=== PATIENT | female | born 1995 | race Caucasian/White ===

== ENCOUNTER → 2017-12-01 | Outpatient (REF) ==
--- NOTE | 2017-12-01 15:58 | Diagnostic Imaging Report ---
INDICATION: Fall with back pain. TECHNIQUE: AP and lateral views of the thoracic spine were obtained. FINDINGS: The thoracic vertebrae are normal in height and alignment. There is no fracture, subluxation, or compression deformity. There is no significant disc space narrowing. IMPRESSION: Negative plain radiographs of the thoracic spine. Dictated by: Dictated on workstation # [id number]
--- NOTE | 2017-12-01 15:59 | Diagnostic Imaging Report ---
INDICATION: Fall with neck pain. TECHNIQUE: AP, odontoid, and lateral views of the cervical spine were obtained. FINDINGS: The cervical vertebrae appear normal in height and alignment. There is no fracture or subluxation. There is no significant disc space narrowing. IMPRESSION: Negative cervical spine series. Dictated by: Dictated on workstation # [id number]
== END | disposition home or self-care (01) ==
LOC: OCC 15:10
PROVIDERS: ATTEND Nurse Practitioner Family
CPT/HCPCS: 72040; 72072

== ENCOUNTER → 2018-03-19 | Outpatient (CLI) | payer OTHER ==
[~2018-03-19] MED LIST: AZTH250C PO; BUTA1CAP45 PO; CEPH-38 PO; CYCL10TA9 PO; IBUPROFEN; LANS15CA27; MEDR150V IM; MTF500T
[2018-03-19 09:44] LABS: BASOPHILS % (AUTO) 1 % (0-10); EOSINOPHILS # (AUTO) 0.2 10^3/uL (0.0-0.3); EOSINOPHILS % (AUTO) 3 % (0-10); HEMATOCRIT 40 % (35-52); HEMOGLOBIN 12.8 G/DL (11.5-16.0); LYMPHOCYTES # (AUTO) 2.4 X 10^3 (1.0-4.0); LYMPHOCYTES % (AUTO) 31 % (12-44); MEAN CORPUSCULAR HEMOGLOBIN 24 PG (25-34); MEAN CORPUSCULAR HGB CONC 32 G/DL (32-36); MEAN CORPUSCULAR VOLUME 73 FL (80-99); MEAN PLATELET VOLUME 9.5 FL (7.4-10.4); MONOCYTES # (AUTO) 0.8 X 10^3 (0.0-1.0); MONOCYTES % (AUTO) 10 % (0-12); NEUTROPHILS # (AUTO) 4.3 X 10^3 (1.8-7.8); NEUTROPHILS % (AUTO) 55 % (42-75); PLATELET COUNT 430 10^3/uL (130-400); RED BLOOD COUNT 5.43 10^6/uL (4.35-5.85); RED CELL DISTRIBUTION WIDTH 17.9 % (10.0-14.5); WHITE BLOOD COUNT 7.7 10^3/uL (4.3-11.0)
--- NOTE | 2018-03-19 10:06 | Diagnostic Imaging Report ---
INDICATION: Constipation for the past year. Denies abdominal pain. TECHNIQUE: Single view chest with supine and upright radiographs of the abdomen. 10:12 AM CORRELATION STUDY: None FINDINGS: Frontal radiograph of the chest demonstrates no acute abnormality. Asymmetrically mildly elevated right diaphragm. Supine and upright radiographs of the abdomen demonstrates the bowel gas pattern to be unremarkable and without evidence for obstruction. No free air is seen under the diaphragms. Probable multiple splenic and hepatic calcified granulomas. IMPRESSION: 1. Negative for acute cardiopulmonary abnormality. 2. Unremarkable appearing bowel gas pattern. Dictated by: Dictated on workstation # [id number]
[2018-03-19 10:11] LABS: BUN/CREATININE RATIO 15; CARBON DIOXIDE 24 MMOL/L (21-32); CHLORIDE 108 MMOL/L (98-107); CREATININE SERUM 0.67 MG/DL (0.60-1.30); POTASSIUM 3.8 MMOL/L (3.6-5.0); SODIUM 141 MMOL/L (135-145)
[2018-03-19 10:12] LABS: ALANINE AMINOTRANSFERASE 26 U/L (0-55); ALBUMIN 3.8 GM/DL (3.2-4.5); ALKALINE PHOSPHATASE 122 U/L (40-136); AMYLASE 53 U/L (25-125); BILIRUBIN,TOTAL 0.2 MG/DL (0.1-1.0); CALCIUM 9.5 MG/DL (8.5-10.1); CHOLESTEROL 209 MG/DL (< 200); GFR ESTIMATED > 60; GLUCOSE 106 MG/DL (70-105); HDL CHOLESTEROL 44 MG/DL (40-60); LIPASE 19 U/L (8-78); TOTAL PROTEIN 7.3 GM/DL (6.4-8.2); TRIGLYCERIDES 82 MG/DL (<150); VLDL CHOLESTEROL 16 MG/DL (5-40)
== END ==
LOC: RAD 09:21
PROVIDERS: ATTEND Nurse Practitioner Family
DX: K59.00 Constipation, unspecified (principal)
CPT/HCPCS: 36415; 74022; 80053; 80061; 82150; 83036; 83690; 84443; 85025

== ENCOUNTER → 2018-04-06 | Outpatient (CLI) | payer OTHER ==
[~2018-04-06] MED LIST changes: +GADOBUTROL 15 MMOL/15 ML (GADAVIST) VIAL IV ONE
--- NOTE | 2018-05-13 11:17 | RADIOLOGY REPORT ---
NAME: JAM BLAND [facility] REC#: [id number] PT STATUS: REG CLI : 1995 PHYSICIAN: ELIZABETH ALCANTAR APRN ADMIT DATE: 04/06/18/RAD CORRECTED Signed Date of Exam:04/06/18 MRI ABDOMEN W/WO CONTRAST PROCEDURE: MR imaging abdomen with and without contrast. TECHNIQUE: Multiplanar, multisequence MR imaging of the abdomen was performed with and without contrast. INDICATION: Left-sided pain. COMPARISON: I have no previous for comparison. FINDINGS: There are a few tiny subcentimeter T2 hypointense filling defects in the dependent gallbladder as well as gallbladder fluid-fluid level likely owing to a trace amount of sludge and a few tiny gallstones. The gallbladder is non-thickened. The gallbladder is nondilated. There is no pericholecystic fluid. There is no bile duct dilatation. The intra- and extra-hepatic biliary ducts appear normal. The adrenals, spleen, and pancreas as well as pancreatic duct appear normal. Kidneys are unobstructed and normal. The aorta and IVC are normal in caliber and show normal luminal signal. There is no mesenteric or retroperitoneal lymphadenopathy. The spleen is nonfocal and normal in size. There is no ascites. The pancreas is normal. No mesenteric or retroperitoneal adenopathy. IMPRESSION: Findings suspicious for small amount of sludge and tiny intraluminal stones in the gallbladder; however, no features of acute cholecystitis or biliary dilatation. Unobstructed urinary tracts. Negative adrenals and pancreas. Normal-sized spleen with no ascites, adenopathy, aneurysm, or fluid collection. Dictated by: Dictated on workstation # [id number] Dict: 04/06/18 1128 Trans: 04/06/18 1702 [id number] Interpreted by: PANCHITO KAUR Electronically signed by: PANCHITO KAUR 04/06/18 1702 [facility]
== END ==
LOC: RAD 08:32
PROVIDERS: ATTEND Nurse Practitioner Family
DX: R10.32 Left lower quadrant pain (principal)
CPT/HCPCS: 74183

== ENCOUNTER → 2020-02-03 | Outpatient (CLI) | payer OTHER, MEDICAID ==
[~2020-02-03] MED LIST changes: -GADOBUTROL 15 MMOL/15 ML (GADAVIST) VIAL IV ONE
--- NOTE | 2020-02-03 11:39 | Diagnostic Imaging Report ---
PROCEDURE: US OB SINGLE FETUS <14 WKS. TECHNIQUE: Multiple real-time grayscale images were obtained over the gravid uterus in various projections. INDICATION: dating. The uterus measures 9.0 x 4.4 x 4.8 cm. There is an intrauterine gestational sac containing a pole consistent with 7 weeks 3 days gestation. heart rate was recorded at 147 bpm. No ayan-gestational sac hemorrhage is detected. Adnexa are unremarkable. No mass or free fluid is seen. IMPRESSION: Single live IUP 7 weeks 3 days gestational age. Estimated date of confinement sonographically is 09/18/2020. Dictated by: Dictated on workstation # [id number]
== END ==
LOC: RAD 10:18
PROVIDERS: ATTEND Family Medicine
DX: Z36.89 Encounter for other specified antenatal screening (principal); Z3A.01 Less than 8 weeks gestation of pregnancy
CPT/HCPCS: 76801

== ENCOUNTER → 2020-04-24 | Outpatient (CLI) | payer OTHER, MEDICAID ==
--- NOTE | 2020-04-24 11:41 | Diagnostic Imaging Report ---
INDICATION: survey. TECHNIQUE: Multiple real-time grayscale images were obtained over the gravid uterus. COMPARISON: 02/03/2020. FINDINGS: There is a single live fetus in a cephalic presentation. heart rate was recorded at 132 bpm. Placenta is anterior. Amniotic fluid volume appears normal. survey shows kidneys, bladder and stomach to be unremarkable. brain is unremarkable. There is a three-vessel cord with normal insertion. spine is unremarkable. The four-chamber heart view could not be adequately obtained today. Study is somewhat compromised due to patient's body habitus. Maternal adnexa were not evaluated. Biometrical measurements are as follows: Biparietal 4.23 cm, age 18 weeks 6 days. Head circumference 15.74 cm, age 18 weeks 5 days. Abdominal circumference 13.27 cm, age 18 weeks 6 days. Femur length 3.28 cm, age 20 weeks 2 days. Sonographic estimate age: 19 weeks 2 days. Sonographic estimated date of delivery: 09/16/2020. Estimated Weight: 288 gm (+/- 42 gm). LMP percentile: 68%. heart rate: 132 beats per minute. number: 1 of 1. IMPRESSION: Single live IUP 19 weeks 2 days gestational age showing normal interval growth when compared with prior exam. No complicating features are seen. Note is made that the four-chamber heart view could not be obtained and a follow-up could be performed. Dictated by: Dictated on workstation # [id number]
== END ==
LOC: RAD 09:32
PROVIDERS: ATTEND Family Medicine
DX: Z34.92 Encounter for supervision of normal pregnancy, unspecified, second trimester (principal); Z3A.19 19 weeks gestation of pregnancy
CPT/HCPCS: 76805

== ENCOUNTER → 2020-05-26 | Outpatient (CLI) | payer OTHER, MEDICAID ==
--- NOTE | 2020-05-26 16:34 | Diagnostic Imaging Report ---
INDICATION: Follow-up anatomy. TECHNIQUE: Multiple real-time grayscale images were obtained over the gravid uterus. COMPARISON: 04/24/2020. FINDINGS: There is a single live fetus in a cephalic presentation. heart rate was recorded at 127 bpm. Placenta is anterior. Amniotic fluid volume appears normal. Four-chamber heart view was visualized with clarity on today's study. IMPRESSION: Unremarkable limited obstetrical ultrasound. Dictated by: Dictated on workstation # [id number]
== END ==
LOC: RAD 09:53
PROVIDERS: ATTEND Family Medicine
DX: Z34.90 Encounter for supervision of normal pregnancy, unspecified, unspecified trimester (principal)
CPT/HCPCS: 76816

== ENCOUNTER 2020-08-23 15:43 | Outpatient (CLI) | payer OTHER, MEDICAID ==
[~2020-08-23] VITALS: Ht 157 cm; Wt 143.6 kg
--- NOTE | 2020-08-23 15:50 | NUR ---
Arrived to unit via wheelchair from ED with c/o "high blood pressure, back pain, lower abd pain and chest pain." wt obtained and to room 317. Gowned and urine sample obtained. Plan of care reviewed with pt.
[2020-08-23 16:30] VITALS: BP 132/73
[2020-08-23 16:31] VITALS: BP 132/73
[2020-08-23 16:45] VITALS: BP 134/79
[2020-08-23] MEDS ORDERED: FLU QUADRIvalent (3YOA+) 60 mcg/0.5 ml 2020-21 (AFLURIA) IM ONE (16:45)
[2020-08-23 16:46] LABS: BILIRUBIN,URINE NEGATIVE (NEGATIVE); CLARITY,URINE CLEAR; COLOR,URINE YELLOW; GLUCOSE, URINE (UA) NEGATIVE (NEGATIVE); KETONES,URINE NEGATIVE (NEGATIVE); LEUKOCYTE ESTERASE ,URINE NEGATIVE (NEGATIVE); NITRITE,URINE NEGATIVE (NEGATIVE); PROTEIN,URINE NEGATIVE (NEGATIVE)
[2020-08-23] MEDS ORDERED: FERR-84 PO (16:55)
[2020-08-23] MEDS ORDERED: DOCU-143 PO (16:55)
[2020-08-23] MEDS ORDERED: LORA10TA7 PO (16:55)
[2020-08-23] MEDS ORDERED: ONDN4T PO (16:55)
[2020-08-23] MEDS ORDERED: MECO10005 PO (16:55)
[2020-08-23] MEDS ORDERED: PREN-37 PO (16:55)
[2020-08-23 16:56] LABS: BACTERIA,URINE TRACE /HPF
[2020-08-23 17:00] VITALS: BP 133/79
[2020-08-23 17:25] VITALS: BP 134/79
--- NOTE | 2020-08-23 18:10 | NUR ---
Discharge instructions explained, signed and copy to patient. pt verbalized understanding of instructions and denied questions. Dicharged to home. Ambulates self off unit accompanied by s.o. with belongings in hand.
--- NOTE | 2020-08-24 08:11 | Physician Query-Final Dx ---
LUCY GRACE 08/24/20 0811: Clinic Account Progress/Dx Physician Query: Please give diagnosis Please include # weeks gestation Date of Service Aug 23, 2020 at 15:43 WILLY BRYANT MD 08/25/20 0707: Clinic Account Progress/Dx DIAGNOSIS: Diagnosis 1. IUP at 36 weeks, non-labor 2. Membranes intact LUCY GRACE Aug 24, 2020 08:11 WILLY BRYANT MD Aug 25, 2020 07:07
== END 2020-08-23 18:10 | disposition home or self-care (01) ==
LOC: WSo 15:43 → LDRP 15:49 → WSo 18:10
PROVIDERS: ATTEND Family Medicine
DX: O99.413 Diseases of the circulatory system complicating pregnancy, third trimester (principal); R03.0 Elevated blood-pressure reading, without diagnosis of hypertension; Z3A.38 38 weeks gestation of pregnancy
CPT/HCPCS: 81000; G0008; G0463; 90471; 90686; 99213

== ENCOUNTER 2020-09-13 19:07 | Inpatient (IN) | payer OTHER, MEDICAID ==
[~2020-09-13] VITALS: Ht 162.6 cm; Wt 146.2 kg
[~2020-09-13 19:07] MED LIST changes: +DOCU-143 PO; +FERR-84 PO; +LORA10TA7 PO; +MECO10005 PO; +ONDN4T PO; +PREN-37 PO
--- NOTE | 2020-09-13 19:20 | NUR ---
JAM BLAND , 39/2 presented to unit via from ED, accompanied by , for INDUCTION. JAM BLAND weighed, gowned, voided, and to bed. EFHM and TOCO applied, VS taken. JAM BLAND oriented to bed controls, call light, TV, heat, and A/C controls.
--- NOTE | 2020-09-13 19:34 | NUR ---
Dr. Mandujano called for orders on induction. orders cytotec to be given thoughout the night, starting with a loading dose of 100mcg PO then 50mcg PO q4 hours. states that he will be in at 0630 to break water.
[2020-09-13] MEDS ORDERED: AMPICILLIN FOR IV USE 2,000 MG in WATER (STERILE) FOR INJECTION 14.8 ML IV SCH (19:36)
[2020-09-13] MEDS ORDERED: MINERAL OIL CONCENTRATE 99.9% 15 ML UDC TOP PRN (19:45)
[2020-09-13] MEDS ORDERED: MISOPROSTOL 100 MCG (CYTOTEC) TAB PO ONE (19:45)
[2020-09-13] MEDS ORDERED: LACTATED RINGERS 1,000 ML IV SCH (19:45)
[2020-09-13] MEDS ORDERED: LACTATED RINGERS 1,000 ML IV ONE (19:52)
[2020-09-13 20:36] LABS: BASOPHILS % (AUTO) 0 % (0-10); EOSINOPHILS # (AUTO) 0.1 10^3/uL (0.0-0.3); EOSINOPHILS % (AUTO) 1 % (0-10); HEMATOCRIT 41 % (35-52); LYMPHOCYTES # (AUTO) 2.8 10^3/uL (1.0-4.0); LYMPHOCYTES % (AUTO) 19 % (12-44); MEAN CORPUSCULAR HEMOGLOBIN 24 pg (25-34); MEAN CORPUSCULAR HGB CONC 32 g/dL (32-36); MEAN CORPUSCULAR VOLUME 76 fL (80-99); MEAN PLATELET VOLUME 10.1 fL (9.0-12.2); MONOCYTES # (AUTO) 1.3 10^3/uL (0.0-1.0); MONOCYTES % (AUTO) 9 % (0-12); NEUTROPHILS # (AUTO) 10.5 10^3/uL (1.8-7.8); NEUTROPHILS % (AUTO) 71 % (42-75); PLATELET COUNT 405 10^3/uL (130-400); WHITE BLOOD COUNT 14.7 10^3/uL (4.3-11.0)
[2020-09-13 20:45] VITALS: BP 140/94
[2020-09-13 20:55] LABS: NEUTROPHILS % (MANUAL) 69 %
[2020-09-13 20:56] LABS: EOSINOPHILS % (MANUAL) 1 %; LYMPHOCYTES % (MANUAL) 22 %; MONOCYTES % (MANUAL) 8 %; RBC MORPH NORMAL
[2020-09-13] MEDS: D5 LR IV SOLUTION 1,000 ML IV SCH (21:20)
[2020-09-13 21:58] VITALS: BP 140/94
[2020-09-13] MEDS ORDERED: CATHETER FLUSH 10 ML SYR IV SCH (22:00)
[2020-09-13 22:45] VITALS: BP 122/65
[2020-09-13] MEDS ORDERED: ZOLPIDEM 5 MG (AMBIEN) TAB ONE (23:44)
[2020-09-13] MEDS ORDERED: MISOPROSTOL 100 MCG (CYTOTEC) TAB PO SCH (23:45)
[2020-09-13] MEDS ORDERED: ZOLPIDEM 5 MG (AMBIEN) TAB PO ONE (23:45)
[2020-09-13 23:55] VITALS: BP 111/57
[2020-09-14] VITALS (54 sets, daily range): BP systolic 115–174; BP diastolic 57–109
[2020-09-14] MEDS: AMPICILLIN FOR IV USE 1,000 MG in WATER (STERILE) FOR INJECTION 7.4 ML IV SCH ×5 (01:12→18:13)
--- NOTE | 2020-09-14 03:18 | NUR ---
Dr. Mandujano called with update on pt. Informed of decelerations starting at 0140. Informed that baby recovered after interventions, but started to decel again after pt. got up to the bathroom. informed that pt. has O2 on going at 10 L, and a IV fluid bolus running. Pt. is not back on right side where heart tones have recovered, but variability is minimal. informed that when pt was in semi-fowlers, nurse was able to assess that pt was in tachysystole. orders fluid bolus to be finished and not to give another dose of Cytotec until he can come in the morning to evaluate pt.
[2020-09-14] MEDS ORDERED: TERBUTALINE INJ 1 MG/ML (BRETHINE) AMP ONE (03:23)
[2020-09-14] MEDS ORDERED: TERBUTALINE INJ 1 MG/ML (BRETHINE) AMP SC ONE (03:30)
[2020-09-14] MEDS: D5 LR IV SOLUTION 1,000 ML IV SCH ×2 (05:03→13:53)
--- NOTE | 2020-09-14 06:39 | History & Physical-OB ---
OB - Chief Complaint & HPI Date/Time Date of Admission: Date of Admission: Sep 13, 2020 at 19:07 Date seen by a Provider: Sep 14, 2020 Time Seen by a Provider: 06:25 Chief Complaint/History OB-Reason for Admission/Chief: Induction of Labor Hx : 1 Hx Para: 0 Expected Date of Delivery: Sep 18, 2020 Gestational Age in Weeks: 39 Gestational Age in Days: 2 Admission Nurse Assessment Rev: Yes History of Labs GBS positive Allergies and Home Medications Allergies Coded Allergies: No Known Drug Allergies (Unverified , 03/05/18) Home Medications Docusate Sodium 100 Mg Capsule, 100 MG PO DAILY, (Reported) Ferrous Sulfate 325 Mg Tablet, 325 MG PO DAILY, (Reported) Loratadine 10 Mg Tablet, 10 MG PO DAILY, (Reported) Mecobalamin 1,000 Mcg Tab.chew, 1,000 MCG PO DAILY, (Reported) Ondansetron HCl 4 Mg Tab, 4 MG PO DAILY, (Reported) Vit/Iron Fumarate/FA 1 Each Tablet, 1 EACH PO DAILY, (Reported) Patient Home Medication List Home Medication List Reviewed: Yes OB - History Hx of Present Care: Yes Ultrasounds: Normal mid trimester US Obstetrical Complications: None Medical Complications: None Delivery History Hx Blood Disorders: No Adverse Rxn to Tranfusion: No Patient Past Medical History no chronic medical problems Social History/Family History Recent Infectious Disease Expo: No Sexually Transmitted Disease: No Alcohol Use: Denies Use Recreational Drug Use: No 2nd Hand Smoke Exposure: Yes Immunizations Hepatitis A: Yes Hepatitis B: Yes Date of Influenza Vaccine: Sep 01, 2020 OB - Admission Exam Physical Exam Vitals: Vital Signs 09/14/20 09/14/20 09/14/20 01:00 03:00 04:00 Temp 36.7 Pulse 97 Resp 18 B/P (MAP) 130/72 (91) Pulse Ox 99 O2 Delivery Room Air HEENT: Moist Membranes Heart: Rhythm Normal Lungs: Clear Abdomen: Gravid Extremities: Normal Cervical Dilatation: 2cm Effacement: 50% Membranes: Intact Heart Rate: 140's Accelerations: Accelerations Present Intensity: Moderate Labs Laboratory Tests Test 09/13/20 20:10 09/13/20 23:20 Range/Units White Blood Count 14.7 H 4.3-11.0 10^3/uL Red Blood Count 5.40 H 3.80-5.11 10^6/uL Hemoglobin 13.0 11.5-16.0 g/dL Hematocrit 41 35-52 % Mean Corpuscular Volume 76 L 80-99 fL Mean Corpuscular Hemoglobin 24 L 25-34 pg Mean Corpuscular Hemoglobin Concent 32 32-36 g/dL Red Cell Distribution Width 18.4 H 10.0-14.5 % Platelet Count 405 H 130-400 10^3/uL Mean Platelet Volume 10.1 9.0-12.2 fL Immature Granulocyte % (Auto) 0 % Neutrophils (%) (Auto) 71 42-75 % Lymphocytes (%) (Auto) 19 12-44 % Monocytes (%) (Auto) 9 0-12 % Eosinophils (%) (Auto) 1 0-10 % Basophils (%) (Auto) 0 0-10 % Neutrophils # (Auto) 10.5 H 1.8-7.8 10^3/uL Lymphocytes # (Auto) 2.8 1.0-4.0 10^3/uL Monocytes # (Auto) 1.3 H 0.0-1.0 10^3/uL Eosinophils # (Auto) 0.1 0.0-0.3 10^3/uL Basophils # (Auto) 0.0 0.0-0.1 10^3/uL Immature Granulocyte # (Auto) 0.1 0.0-0.1 10^3/uL Neutrophils % (Manual) 69 % Lymphocytes % (Manual) 22 % Monocytes % (Manual) 8 % Eosinophils % (Manual) 1 % Blood Morphology Comment NORMAL OB - Assessment/Plan/Diagnosis Assessment Assessment: induction of labor Admission Dx 1. IUP at term 39 weeks Admission Status: Inpatient Order (span 2 midnights) Reason for Inpatient Admission: L&D Plan Induction Method: per Misoprostol Protocol Other Plan -epidural desired -pitocin as necessary -GBS positive. Ampicillin protochol WILLY BRYANT MD Sep 14, 2020 06:39
[2020-09-14] MEDS ORDERED: OXYTOCIN PRE-MIX DRIP 500 ML IV SCH (06:45)
--- NOTE | 2020-09-14 07:05 | NUR ---
Report given to Clarissa Rojas RN
[2020-09-14] MEDS ORDERED: fentaNYL 2 mcg/ml BUPIVA 0.125 100 ML ONE ×2 (08:26→13:39)
[2020-09-14] MEDS ORDERED: fentaNYL INJECTION 100 MCG/2 ML AMP ONE ×2 (08:56→17:23)
[2020-09-14] MEDS ORDERED: BUPIVACAINE 0.25% 30 ML (SENSORCAINE) VIAL ONE ×2 (08:56→16:40)
--- NOTE | 2020-09-14 16:34 | Labor Progress Note ---
Labor Progress Note Labor Progress Note Date Seen by Provider: Sep 14, 2020 Time Seen by Provider: 16:25 Subjective: Having some nausea. Feels cramps low. Objective: Cervical exam: 5 cm Consistency: soft Position: -3 Presentation: vertex heart tones:130 beats per minute, good variability, reactive Tocometer: 5 ctx/10 minutes Assessment/Plan: Dann Joel is a (23 /Para 1 / 0,Gestational Age (wks)39 here for labor CEFM/TOCO Continue pitocin/6 uU/min Anesthesia: epidural in place Anticipate vaginal delivery but patient aware that if dilation stops she may ne ed CS Vitals - Labs Vital Signs - I&O Vital Signs Date Time Temp Pulse Resp B/P (MAP) Pulse Ox O2 Delivery O2 Flow Rate FiO2 09/14/20 14:55 92 18 143/80 (101) 100 Room Air 09/14/20 14:40 77 18 159/92 (114) 100 Room Air 09/14/20 14:25 81 18 157/94 (115) 100 Room Air 09/14/20 14:10 100 18 138/91 (107) 100 Room Air 09/14/20 13:55 70 18 148/91 (110) 100 Room Air 09/14/20 13:40 91 18 157/96 (116) 100 Room Air 09/14/20 13:25 68 18 147/88 (107) 100 Room Air 09/14/20 13:10 78 18 141/93 (109) 100 Room Air 09/14/20 12:55 71 18 127/72 (90) 100 Room Air 09/14/20 12:40 75 18 133/71 (91) 100 Room Air 09/14/20 12:25 76 18 155/90 (111) 100 Room Air 09/14/20 12:10 36.6 85 18 155/92 (113) 100 Room Air 09/14/20 11:55 71 18 147/90 (109) 100 Room Air 09/14/20 11:40 75 18 145/89 (107) 100 Room Air 09/14/20 11:25 86 18 143/71 (95) 97 Room Air 09/14/20 11:10 74 18 138/81 (100) 99 Room Air 09/14/20 10:55 76 18 137/70 (92) 100 Room Air 12/10/20 10:40 82 18 136/86 (103) 100 Room Air 09/14/20 10:25 83 18 138/79 (98) 100 Room Air 09/14/20 10:10 81 20 155/87 (109) 100 Room Air 09/14/20 09:55 83 20 147/73 (97) 100 Room Air 09/14/20 09:50 92 20 156/86 (109) 98 Room Air 09/14/20 09:45 96 20 171/89 (116) 98 Room Air 09/14/20 09:40 81 20 155/71 (99) 98 Room Air 09/14/20 09:35 106 20 164/79 (107) 97 Room Air 09/14/20 09:30 105 20 172/70 (104) 97 Room Air 09/14/20 09:25 105 20 156/98 (117) 97 Room Air 09/14/20 09:20 115 20 154/91 (112) 97 Room Air 09/14/20 09:15 100 20 148/92 (110) 97 Room Air 09/14/20 09:10 92 20 153/88 (109) 98 Room Air 09/14/20 09:05 88 20 153/80 (104) 99 Room Air 09/14/20 09:00 36.0 103 20 144/78 (100) 100 Room Air 09/14/20 07:00 93 18 117/57 (77) Room Air 09/14/20 06:00 36.1 92 18 119/61 (80) Room Air 09/14/20 05:00 104 18 124/67 (86) Room Air 09/14/20 04:00 97 18 130/72 (91) Room Air 09/14/20 03:00 36.7 101 18 126/73 (90) Room Air 09/14/20 02:00 94 18 133/82 (99) Room Air 09/14/20 01:00 92 18 137/77 (97) 99 Room Air 09/13/20 23:55 36.5 79 18 111/57 (75) Room Air 09/13/20 22:45 36.2 85 20 122/65 (84) 99 Room Air 09/13/20 21:58 36.1 86 20 98 Room Air 09/13/20 20:45 85 20 140/94 (109) 99 Room Air I & O 09/14/20 07:00 Intake Total 2000 ml Balance 2000 ml Labs Laboratory Tests 09/13/20 20:10: White Blood Count 14.7H, Red Blood Count 5.40H, Hemoglobin 13.0, Hematocrit 41, Mean Corpuscular Volume 76L, Mean Corpuscular Hemoglobin 24L, Mean Corpuscular Hemoglobin Concent 32, Red Cell Distribution Width 18.4H, Platelet Count 405H, Mean Platelet Volume 10.1, Immature Granulocyte % (Auto) 0, Neutrophils (%) (Auto) 71, Lymphocytes (%) (Auto) 19, Monocytes (%) (Auto) 9, Eosinophils (%) (Auto) 1, Basophils (%) (Auto) 0, Neutrophils # (Auto) 10.5H, Lymphocytes # (Auto) 2.8, Monocytes # (Auto) 1.3H, Eosinophils # (Auto) 0.1, Basophils # (Auto) 0.0, Immature Granulocyte # (Auto) 0.1, Neutrophils % (Manual) 69, Lymp hocytes % (Manual) 22, Monocytes % (Manual) 8, Eosinophils % (Manual) 1, Blood Morphology Comment NORMAL 09/13/20 23:20: WILLY BRYANT MD Sep 14, 2020 16:34
[2020-09-14] MEDS ORDERED: CITRIC ACID/SOB CIT (BICITRA) 30 ML UDC ONE (17:15)
[2020-09-14] MEDS ORDERED: FAMOTIDINE 20MG/2ML IV (PEPCID) ONE (17:15)
[2020-09-14] MEDS ORDERED: METOCLOPRAMIDE INJ 10 MG/2 ML (REGLAN) ONE (17:15)
[2020-09-14] MEDS ORDERED: OXYTOCIN PRE-MIX DRIP 1,000 ML IV ONE (17:23)
[2020-09-14] MEDS ORDERED: LIDOCAINE PF 2% 5 ML (XYLOCAINE) VIAL ONE (17:23)
--- NOTE | 2020-09-14 17:23 | Labor Progress Note ---
Labor Progress Note Labor Progress Note Date Seen by Provider: Sep 14, 2020 Time Seen by Provider: 17:20 Subjective: Pt with epidural but has pressure. Objective: Cervical exam: 5 cm Consistency: soft Position: -3 Presentation: vtx heart tones:140 beats per minute, occasional runs of repetitive late decels Tocometer: 4 ctx/10 minutes Assessment/Plan: Dann Joel is a (23 /Para 1 / 0,Gestational Age (wks)39 [facility] Anest[facility] and surgery crew notified. Dr Harding notified and be here shortly Primary CS planned urgent Vitals - Labs Vital Signs - I&O Vital Signs Date Time Temp Pulse Resp B/P (MAP) Pulse Ox O2 Delivery O2 Flow Rate FiO2 09/14/20 14:55 92 18 143/80 (101) 100 Room Air 09/14/20 14:40 77 18 159/92 (114) 100 Room Air 09/14/20 14:25 81 18 157/94 (115) 100 Room Air 09/14/20 14:10 100 18 138/91 (107) 100 Room Air 09/14/20 13:55 70 18 148/91 (110) 100 Room Air 09/14/20 13:40 91 18 157/96 (116) 100 Room Air 09/14/20 13:25 68 18 147/88 (107) 100 Room Air 09/14/20 13:10 78 18 141/93 (109) 100 Room Air 09/14/20 12:55 71 18 127/72 (90) 100 Room Air 09/14/20 12:40 75 18 133/71 (91) 100 Room Air 09/14/20 12:25 76 18 155/90 (111) 100 Room Air 09/14/20 12:10 36.6 85 18 155/92 (113) 100 Room Air 09/14/20 11:55 71 18 147/90 (109) 100 Room Air 09/14/20 11:40 75 18 145/89 (107) 100 Room Air 09/14/20 11:25 86 18 143/71 (95) 97 Room Air 09/14/20 11:10 74 18 138/81 (100) 99 Room Air 09/14/20 10:55 76 18 137/70 (92) 100 Room Air 09/14/20 10:40 82 18 136/86 (103) 100 Room Air 09/14/20 10:25 83 18 138/79 (98) 100 Room Air 09/14/20 10:10 81 20 155/87 (109) 100 Room Air 09/14/20 09:55 83 20 147/73 (97) 100 Room Air 09/14/20 09:50 92 20 156/86 (109) 98 Room Air 09/14/20 09:45 96 20 171/89 (116) 98 Room Air 09/14/20 09:40 81 20 155/71 (99) 98 Room Air 09/14/20 09:35 106 20 164/79 (107) 97 Room Air 09/14/20 09:30 105 20 172/70 (104) 97 Room Air 09/14/20 09:25 105 20 156/98 (117) 97 Room Air 09/14/20 09:20 115 20 154/91 (112) 97 Room Air 09/14/20 09:15 100 20 148/92 (110) 97 Room Air 09/14/20 09:10 92 20 153/88 (109) 98 Room Air 09/14/20 09:05 88 20 153/80 (104) 99 Room Air 09/14/20 09:00 36.0 103 20 144/78 (100) 100 Room Air 09/14/20 07:00 93 18 117/57 (77) Room Air 09/14/20 06:00 36.1 92 18 119/61 (80) Room Air 09/14/20 05:00 104 18 124/67 (86) Room Air 09/14/20 04:00 97 18 130/72 (91) Room Air 09/14/20 03:00 36.7 101 18 126/73 (90) Room Air 09/14/20 02:00 94 18 133/82 (99) Room Air 09/14/20 01:00 92 18 137/77 (97) 99 Room Air 09/13/20 23:55 36.5 79 18 111/57 (75) Room Air 09/13/20 22:45 36.2 85 20 122/65 (84) 99 Room Air 09/13/20 21:58 36.1 86 20 98 Room Air 09/13/20 20:45 85 20 140/94 (109) 99 Room Air I & O 09/14/20 07:00 Intake Total 2000 ml Balance 2000 ml Labs Laboratory Tests 09/13/20 20:10: White Blood Count 14.7H, Red Blood Count 5.40H, Hemoglobin 13.0, Hematocrit 41, Mean Corpuscular Volume 76L, Mean Corpuscular Hemoglobin 24L, Mean Corpuscular Hemoglobin Concent 32, Red Cell Distribution Width 18.4H, Platelet Count 405H, Mean Platelet Volume 10.1, Immature Granulocyte % (Auto) 0, Neutrophils (%) (Auto) 71, Lymphocytes (%) (Auto) 19, Monocytes (%) (Auto) 9, Eosinophils (%) (Auto) 1, Basophils (%) (Auto) 0, Neutrophils # (Auto) 10.5H, Lymphocytes # (Auto) 2.8, Monocytes # (Auto) 1.3H, Eosinophils # (Auto) 0.1, Basophils # (Auto) 0.0, Immature Granulocyte # (Auto) 0.1, Neutrophils % (Manual) 69, Lymphocytes % (Manual) 22, Monocytes % (Manual) 8, Eosinophils % (Manual) 1, Blood Morphology Comment NORMAL 09/13/20 23:20: WILLY BRYANT MD Sep 14, 2020 17:23
[2020-09-14] MEDS ORDERED: KETAMINE/NaCl 50 MG/5 ML SYRINGE (ED ONLY) ONE (17:29)
[2020-09-14] MEDS ORDERED: CATHETER FLUSH 10 ML SYR IV PRN (17:30)
[2020-09-14] MEDS ORDERED: METOCLOPRAMIDE INJ 10 MG/2 ML (REGLAN) IV ONE (17:30)
[2020-09-14] MEDS ORDERED: FAMOTIDINE 20MG/2ML IV (PEPCID) IV ONE (17:30)
[2020-09-14] MEDS ORDERED: LACTATED RINGERS 1,000 ML IV PRN ×2 (17:30)
[2020-09-14] MEDS ORDERED: CITRIC ACID/SOB CIT (BICITRA) 30 ML UDC PO ONE (17:30)
--- NOTE | 2020-09-14 18:13 | Consultation ---
History of Present Illness History of Present Illness Patient Consulted On(renay/time) 09/14/20 18:09 Date Seen by Provider: Sep 14, 2020 Time Seen by Provider: 17:55 History of Present Illness Patient was induction of Dr. Mandujano who demonstrated meconium stained fluid and intolerance to augmentation of labor Allergies and Home Medications Allergies Coded Allergies: No Known Drug Allergies (Unverified , 03/05/18) Home Medications Docusate Sodium 100 Mg Capsule, 100 MG PO DAILY, (Reported) Ferrous Sulfate 325 Mg Tablet, 325 MG PO DAILY, (Reported) Loratadine 10 Mg Tablet, 10 MG PO DAILY, (Reported) Mecobalamin 1,000 Mcg Tab.chew, 1,000 MCG PO DAILY, (Reported) Ondansetron HCl 4 Mg Tab, 4 MG PO DAILY, (Reported) Vit/Iron Fumarate/FA 1 Each Tablet, 1 EACH PO DAILY, (Reported) Patient Home Medication List Home Medication List Reviewed: Yes Past Qqbkuko-Xyvaez-Vfcjtq Hx Patient Social History Alcohol Use: Denies Use Recreational Drug Use: No 2nd Hand Smoke Exposure: Yes Recent Foreign Travel: No Contact w/Someone Who Travel: No Recent Infectious Disease Expo: No Recent Hopitalizations: No Immunizations Up To Date PED Vaccines UTD: Yes Date of Influenza Vaccine: Sep 01, 2020 Seasonal Allergies Seasonal Allergies: Yes Past Medical History Surgeries: No Adenoidectomy, Tonsillectomy Respiratory: No Cardiac: No Neurological: No Headaches /Migraines Expected Date of Delivery: Sep 18, 2020 Hx : 1 Hx Para: 0 Reproductive Disorders: No Sexually Transmitted Disease: No Genitourinary: No Gastrointestinal: No Musculoskeletal: No Endocrine: No HEENT: No Cancer: No Psychosocial: No Integumentary: No Blood Disorders: No Adverse Reaction/Blood Tranf: No Family Medical History FH: blood disorder Review of Systems-General All Other Systems Reviewed Negative Unless Noted: Yes Physical Exam-General Problems Physical Exam Vital Signs Vital Signs - First Documented 09/13/20 09/13/20 20:45 21:58 Temp 36.1 Pulse 85 Resp 20 B/P (MAP) 140/94 (109) Pulse Ox 99 O2 Delivery Room Air Capillary Refill : Less Than 3 Seconds General Appearance: WD/WN, no apparent distress Gastrointestinal: soft Neurologic/Psychiatric: normal mood/affect, oriented x 3 Skin: normal color, warm/dry Lymphatic: no adenopathy Assessment/Plan Assessment/Plan Admission Diagnosis/Plan Diagnosis: 39 week G1 with intolerance of labor P: Discussed with patient PLTCS risk and recovery timing, vs ongoing risk of induction and risk to wellbeing. After all questions answered we agreed to proceed with . Admission Status: Inpatient Order (span 2 midnights) Clinical Quality Measures DVT/VTE Risk/Contraindication: Risk Factor Score Per Nursin RFS Level Per Nursing on Admit: 2=Moderate FENAILEEN FAN DO Sep 14, 2020 18:13
[2020-09-14] MEDS ORDERED: MEASLES,MUMPS,RUBELLA 1 EA INJ SC SCH (18:15)
[2020-09-14] MEDS ORDERED: ONDANSETRON 4 MG/2 ML (SDV) Z0FRAN IVP PRN (18:15)
[2020-09-14] MEDS ORDERED: TETANUS,DIPTH,PERTUSS P/F (BOOSTRIX) 0.5 ML VIAL IM SCH (18:15)
[2020-09-14] MEDS ORDERED: ONDANSETRON 4 MG/2 ML (SDV) Z0FRAN ONE (18:49)
[2020-09-14] MEDS: KETOROLAC 30 MG/ML VIAL IV SCH (19:39)
[2020-09-14] MEDS: OXYTOCIN PRE-MIX DRIP 500 ML IV SCH ×2 (20:14→23:04)
[2020-09-14] MEDS: HYDROcodone/APAP 5 MG/325 MG (LORTAB) TAB PO PRN (21:44)
[2020-09-14] MEDS: DOCUSATE SODIUM 100 MG (COLACE) CAP PO SCH (21:45)
[2020-09-14] MEDS ORDERED: CATHETER FLUSH 10 ML SYR IV SCH (22:00)
[2020-09-15 00:17] VITALS: BP 128/73
[2020-09-15] MEDS: KETOROLAC 30 MG/ML VIAL IV SCH (02:10)
--- NOTE | 2020-09-15 02:50 | OPERATIVE REPORT ---
DATE OF SERVICE: PREOPERATIVE DIAGNOSES: 1. A 25-year-old G1, P0 at 39 weeks gestation. 2. intolerance of labor. POSTOPERATIVE DIAGNOSES: 1. A 25-year-old G1, P0 at 39 weeks gestation. 2. intolerance of labor. 3. Meconium stained fluid and anterior placenta. PROCEDURE: Primary low transverse section. SURGEON: Tra Harding DO [employer]ACTICAL [employer]IST[employer]ES PROFESSOR: Dr. Sergio Mandujano, who was necessary for manipulation and retraction throughout the procedure. ANESTHESIA: Epidural, which was bolused. ESTIMATED BLOOD LOSS: 400 mL. URINE OUTPUT: 50 mL clear at the end of procedure. FLUIDS: 600 mL lactated Ringer's solution. FINDINGS: A live female , weight 7 pounds even, Apgars of 8 and 9. Grossly normal appearing uterus, bilateral fallopian tubes and ovaries. SPECIMEN SENT: Placenta. INDICATIONS FOR PROCEDURE: This 25-year-old female is the patient was admitted for induction of labor by Dr. Mandujano. She made it to 6 cm dilated, was found to have meconium fluid on rupture of membranes and she was unable to tolerate Pitocin augmentation without heart rate deceleration. Due to dysfunctional uterine contraction pattern as well as intolerance of augmentation of labor, this decision was made by Dr. Mandujano after consult myself for primary . After reviewing the indication with the patient, risks of the procedure were discussed with the patient in detail including risk of bleeding, infection, damage to surrounding structures including, but not limited to bowel, bladder, ureter, kidneys, possible need for reoperation, postoperative complications that may occur, risk from anesthesia, recovery timeframe and even . After everything was discussed with the patient in detail, consent was obtained in the preoperative area and the patient was taken to the operating room. OPERATIVE REPORT IN DETAIL: Once in the operating room, epidural analgesia was bolused and found to be adequate. She was placed in supine position with leftward tilt, prepped and draped in normal sterile fashion. Timeout was performed and anesthesia was tested. I then make a Pfannenstiel skin incision with a knife and carried down to underlying fascia using Bovie cautery. The fascial incision extended laterally using Bovie cautery. Superior aspect of fascial incision was then grasped with Ninfa clamps, tented upward and dissected off the underlying rectus muscles. The inferior aspect of the fascial incision was then grasped with Ninfa clamps, tented up and dissected off the underlying rectus muscles. Rectus muscles were then dissected down the midline exposing the peritoneum, which I entered bluntly and extended using blunt traction. I placed an Carlos ring retractor within the peritoneal incision, which offers excellent lateral sidewall retraction. I then identified the lower uterine segment, which was found to be thinned out and make a low transverse incision to the vesicouterine peritoneum and bluntly dissected this off the lower uterine segment, creating a bladder flap. I then proceeded with myotomy until membranes were visualized, at which point I extended the uterine incision laterally and superiorly using bandage scissors. I encountered placenta in this dissection, however I am able to deliver the through the incision by placing my hand beneath the head and elevated up to the incision where the nares and oropharynx were bulb suctioned. The anterior and posterior shoulders were delivered. The infant was then brought out to the operative field with cord doubly clamped and cut and infant was taken off of the operative field by Dr. Mandujano, who was present for delivery and assistance. Cord blood was collected. Three-vessel cord with intact placenta was delivered spontaneously thereafter. IV Pitocin was initiated to facilitate uterine contraction. Uterine fundus confirmed by manual massage. The uterus was then exteriorized and cleared of endometrial clots and debris. I then proceeded with closing the uterine incision using 0 Vicryl suture in running locked fashion. Second layer of imbricating 0 Monocryl was placed. Excellent hemostasis was noted after doing this. I then placed the uterus back in the pelvis and copiously irrigated the pelvis using normal saline. Once again, there was no active bleeding noted from any of my dissection planes. I placed Interceed antiadhesive over my low transverse incision. I removed the Carlos ring retractor and proceeded with closing the peritoneum using 3-0 Vicryl suture in a running fashion. The rectus muscles were reapproximated using 3-0 Vicryl suture in interrupted fashion. There was bleeding on the rectus fascial junction superiorly. I have to suture ligate this using 3-[address] Surgicel over the top of it to ensure excellent hemostasis, after which there was no active bleeding noted from this location. I then proceeded with closing the fascia using 0 Vicryl suture in running fashion. The subcutaneous tissue was reapproximated using 3-0 plain interrupted subcutaneous stitch and the skin was reapproximated using 4-0 Monocryl running subcuticular. Dermabond was applied to incision and sterile dressing with adhesive white tape. The patient tolerated the procedure well and sent to recovery area in stable condition. Lap and sponge counts were correct at the end of the procedure. Instrument counts correct as well. Two grams of Ancef given preoperatively for infection prophylaxis. Job ID: [id number] DocumentID: [id number] Dictated Date: 09/14/2020 19:19:49 Clipper Machine Operator Date: 09/15/2020 02:49:59 Dictated By: DO MARYAN ENGLISH
[2020-09-15 05:20] VITALS: BP 128/66
[2020-09-15] MEDS: HYDROcodone/APAP 5 MG/325 MG (LORTAB) TAB PO PRN ×4 (05:26→20:08)
[2020-09-15 06:48] LABS: BASOPHILS % (AUTO) 0 % (0-10); EOSINOPHILS % (AUTO) 0 % (0-10); HEMATOCRIT 37 % (35-52); HEMOGLOBIN 11.5 g/dL (11.5-16.0); LYMPHOCYTES % (AUTO) 7 % (12-44); MEAN CORPUSCULAR HEMOGLOBIN 24 pg (25-34); MEAN CORPUSCULAR HGB CONC 31 g/dL (32-36); MEAN CORPUSCULAR VOLUME 77 fL (80-99); MEAN PLATELET VOLUME 10.5 fL (9.0-12.2); MONOCYTES # (AUTO) 1.4 10^3/uL (0.0-1.0); MONOCYTES % (AUTO) 5 % (0-12); NEUTROPHILS # (AUTO) 23.2 10^3/uL (1.8-7.8); NEUTROPHILS % (AUTO) 86 % (42-75); PLATELET COUNT 370 10^3/uL (130-400); WHITE BLOOD COUNT 26.9 10^3/uL (4.3-11.0)
--- NOTE | 2020-09-15 06:50 | Anesthesia-Regional Post-Op ---
Regional Patient Condition Mental Status: Alert, Oriented x3 Circulation: Same as Pre-Op Headache: Absent Sensation: Decreased Motor Block: Absent Post Op Complications Complications Pt reports her Right hip down to her kne "still feels numb" Pt is able to ambulate per SRNA. Will f/u further. Pt was advised to let RN know if leg does not continue to improve. Follow Up Care/Instructions Patient Instructions None needed. Anesthesia/Patient Condition [place] [facility] [place]: OSMAR Car CRNA Sep 15, 2020 06:50
--- NOTE | 2020-09-15 07:02 | Postpartum Progress Note ---
Note Note Day # 1 Subjective: Patient is without complaints. Ambulating, voiding. Tolerating a regular diet without nausea or vomiting. Normal lochia. Pain is well controlled with oral pain medications. Objective: Physical Exam: General - Alert and oriented, no apparent distress Abdomen - Soft, appropriately tender to palpation, non-distended, fundus firm at umbilicus Extremities - no edema, negative Vincent's bilaterally Incision- c/d/i Assessment: POD 1 PLTCS Acute blood loss anemia Plan: Routine care. Encourage breast feeding. Encourage ambulation. Ferrous sulfate supplementation. Plan for discharge tomorrow Vitals - Labs Vital Signs - I&O Vital Signs Date Time Temp Pulse Resp B/P (MAP) Pulse Ox O2 Delivery O2 Flow Rate FiO2 09/15/20 05:20 36.6 98 18 128/66 (86) 96 09/15/20 00:17 36.2 94 18 128/73 (91) 97 09/14/20 19:59 36.8 18 142/83 (102) 99 Room Air 09/14/20 19:59 Room Air 09/14/20 19:44 36.7 18 153/93 (113) 99 Room Air 09/14/20 19:44 Room Air 09/14/20 19:29 Room Air 09/14/20 19:29 36.4 18 115/109 (111) 98 Room Air 09/14/20 19:14 36.3 18 136/79 (98) 100 Room Air 09/14/20 19:14 Room Air 09/14/20 17:40 84 20 143/79 (100) 100 Room Air 09/14/20 17:25 102 20 142/88 (106) 100 Room Air 09/14/20 17:10 103 20 158/98 (118) 99 Room Air 09/14/20 16:55 84 20 144/94 (111) 99 Room Air 09/14/20 16:40 75 20 141/80 (100) 99 Room Air 09/14/20 16:25 88 20 152/100 (117) 100 Room Air 09/14/20 16:10 87 20 149/92 (111) 100 Room Air 09/14/20 16:00 90 20 141/103 (116) 100 Room Air 09/14/20 15:45 36.6 88 20 165/101 (122) 100 Room Air 09/14/20 15:30 96 20 174/104 (127) 100 Room Air 09/14/20 15:10 78 20 143/96 (112) 100 Room Air 09/14/20 14:55 92 18 143/80 (101) 100 Room Air 09/14/20 14:40 77 18 159/92 (114) 100 Room Air 09/14/20 14:25 81 18 157/94 (115) 100 Room Air 09/14/20 14:10 100 18 138/91 (107) 100 Room Air 09/14/20 13:55 70 18 148/91 (110) 100 Room Air 09/14/20 13:40 91 18 157/96 (116) 100 Room Air 09/14/20 13:25 68 18 147/88 (107) 100 Room Air 09/14/20 13:10 78 18 141/93 (109) 100 Room Air 09/14/20 12:55 71 18 127/72 (90) 100 Room Air 09/14/20 12:40 75 18 133/71 (91) 100 Room Air 09/14/20 12:25 76 18 155/90 (111) 100 Room Air 09/14/20 12:10 36.6 85 18 155/92 (113) 100 Room Air 09/14/20 11:55 71 18 147/90 (109) 100 Room Air 09/14/20 11:40 75 18 145/89 (107) 100 Room Air 09/14/20 11:25 86 18 143/71 (95) 97 Room Air 09/14/20 11:10 74 18 138/81 (100) 99 Room Air 09/14/20 10:55 76 18 137/70 (92) 100 Room Air 09/14/20 10:40 82 18 136/86 (103) 100 Room Air 09/14/20 10:25 83 18 138/79 (98) 100 Room Air 09/14/20 10:10 81 20 155/87 (109) 100 Room Air 09/14/20 09:55 83 20 147/73 (97) 100 Room Air 09/14/20 09:50 92 20 156/86 (109) 98 Room Air 09/14/20 09:45 96 20 171/89 (116) 98 Room Air 09/14/20 09:40 81 20 155/71 (99) 98 Room Air 09/14/20 09:35 106 20 164/79 (107) 97 Room Air 09/14/20 09:30 105 20 172/70 (104) 97 Room Air 09/14/20 09:25 105 20 156/98 (117) 97 Room Air 09/14/20 09:20 115 20 154/91 (112) 97 Room Air 09/14/20 09:15 100 20 148/92 (110) 97 Room Air 09/14/20 09:10 92 20 153/88 (109) 98 Room Air 09/14/20 09:05 88 20 153/80 (104) 99 Room Air 09/14/20 09:00 36.0 103 20 144/78 (100) 100 Room Air I & O 09/15/20 07:00 Intake Total 2450 ml Output Total 650 ml Balance 1800 ml Labs Laboratory Tests 09/15/20 06:05: White Blood Count 26.9H, Red Blood Count 4.82, Hemoglobin 11.5, Hematocrit 37, Mean Corpuscular Volume 77L, Mean Corpuscular Hemoglobin 24L, Mean Corpuscular Hemoglobin Concent 31L, Red Cell Distribution Width 18.6H, Platelet Count 370, Mean Platelet Volume 10.5, Immature Granulocyte % (Auto) 1, Neutrophils (%) (Auto) 86H, Lymphocytes (%) (Auto) 7L, Monocytes (%) (Auto) 5, Eosinophils (%) (Auto) 0, Basophils (%) (Auto) 0, Neutrophils # (Auto) 23.2H, Lymphocytes # (Auto) 2.0, Monocytes # (Auto) 1.4H, Eosinophils # (Auto) 0.0, Basophils # (Auto) 0.0, Immature Granulocyte # (Auto) 0.2H AILEEN NOBLE DO Sep 15, 2020 07:02
[2020-09-15] MEDS ORDERED: cefTRIAXone 250 MG/ML vial (IM ONLY) IM NR (07:15)
[2020-09-15] MEDS ORDERED: LIDOCAINE 1% INJ 20 ML 20 ML VIAL INJ NR (07:15)
[2020-09-15 07:35] VITALS: BP 117/64
[2020-09-15] MEDS ORDERED: IBUPROFEN 600 MG (MOTRIN) TAB PO ONE (09:30)
[2020-09-15] MEDS: IBUPROFEN 600 MG (MOTRIN) TAB PO SCH ×3 (09:46→23:23)
[2020-09-15] MEDS: DOCUSATE SODIUM 100 MG (COLACE) CAP PO SCH ×2 (09:46→20:09)
[2020-09-15 13:35] VITALS: BP 124/64
[2020-09-15 17:20] VITALS: BP 124/77
--- NOTE | 2020-09-15 20:30 | NUR ---
Assessment completed. Pt denies any complaints. abdominal incision has sanguineous drainage around the abdominal folds. area cleaned. Abd pad placed over incision.
[2020-09-15 21:00] VITALS: BP 127/62
[2020-09-16 02:19] VITALS: BP 129/67
[2020-09-16] MEDS: HYDROcodone/APAP 5 MG/325 MG (LORTAB) TAB PO PRN ×3 (03:13→12:18)
--- NOTE | 2020-09-16 05:15 | Postpartum Progress Note ---
Note Note Day # 2 Subjective: Patient is without complaints. Ambulating, voiding. Tolerating a regular diet without nausea or vomiting. Normal lochia. Pain is well controlled with oral pain medications. Objective: Physical Exam: General - Alert and oriented, no apparent distress Abdomen - Soft, appropriately tender to palpation, non-distended, fundus firm at umbilicus Extremities - no edema, negative Vincent's bilaterally Incision- c/d/i Assessment: POD 2 PLTCS Leukocytosis improving Afebrile Plan: Routine care. Encourage breast feeding. Encourage ambulation. Ferrous sulfate supplementation. Plan for discharge today Vitals - Labs Vital Signs - I&O Vital Signs Date Time Temp Pulse Resp B/P (MAP) Pulse Ox O2 Delivery O2 Flow Rate FiO2 09/16/20 02:19 36.6 104 20 129/67 (87) 98 09/15/20 21:00 36.5 104 20 127/62 (83) 98 09/15/20 17:20 36.7 101 20 124/77 (93) 98 09/15/20 13:35 36.6 94 20 124/64 (84) 97 09/15/20 07:35 36.3 92 20 117/64 (81) 96 09/15/20 05:20 36.6 98 18 128/66 (86) 96 I & O 09/16/20 07:00 Intake Total 500 ml Output Total 1150 ml Balance -650 ml Labs Laboratory Tests 09/15/20 06:05: White Blood Count 26.9H, Red Blood Count 4.82, Hemoglobin 11.5, Hematocrit 37, Mean Corpuscular Volume 77L, Mean Corpuscular Hemoglobin 24L, Mean Corpuscular Hemoglobin Concent 31L, Red Cell Distribution Width 18.6H, Platelet Count 370, Mean Platelet Volume 10.5, Immature Granulocyte % (Auto) 1, Neutrophils (%) (Auto) 86H, Lymphocytes (%) (Auto) 7L, Monocytes (%) (Auto) 5, Eosinophils (%) (Auto) 0, Basophils (%) (Auto) 0, Neutrophils # (Auto) 23.2H, Lymphocytes # (Auto) 2.0, Monocytes # (Auto) 1.4H, Eosinophils # (Auto) 0.0, Basophils # (Auto) 0.0, Immature Granulocyte # (Auto) 0.2H AILEEN NOBLE DO Sep 16, 2020 05:15
[2020-09-16] MEDS: IBUPROFEN 600 MG (MOTRIN) TAB PO SCH ×2 (05:32→12:19)
[2020-09-16 07:55] LABS: HEMOGLOBIN 10.4 g/dL (11.5-16.0); WHITE BLOOD COUNT 14.7 10^3/uL (4.3-11.0)
[2020-09-16 07:56] LABS: MEAN PLATELET VOLUME 9.9 fL (9.0-12.2)
[2020-09-16 09:00] VITALS: BP 138/82
--- NOTE | 2020-09-16 09:00 | NUR ---
A.M. ASSESSMENT COMPLETED. VSS. CARING FOR IN ROOM.
[2020-09-16] MEDS: DOCUSATE SODIUM 100 MG (COLACE) CAP PO SCH (09:04)
--- NOTE | 2020-09-16 09:05 | NUR ---
LORTAB 1 TAB P.O. FOR C/O ABD PAIN.
--- NOTE | 2020-09-16 11:01 | Discharge Inst-Women's Service ---
Discharge Inst-Women's Serv Depart Medication/Instructions New, Converted or Re-Newed RX: RX on Chart Final Diagnosis POD 2 PLTCS Problems Reviewed?: Yes Consults/Follow Up Additional Follow Up: Yes Orders/Referrals Dr. Harding in 7-[address] Mandujano in 6 weeks Activity Activity: Activity as Tolerated Driving Instructions: No Driving for 1 Week NO SMOKING: NO SMOKING Nothing Inside Vagina: No Douching, No [place], No Tampons Diet Discharge Diet: No Restrictions Symptoms to Report to : Bleeding Excessive, Pain Increased, Fever Over 101 Degrees F, Vaginal Bleeding Increase, Questions/Concerns For Any Problems or Questions: Contact Your Physician Skin/Wound Care Infection Signs and Symptoms: Increased Redness, Foul Odor of Wound, Increased Drainage, Skin Itchy or Has a Rash, Increased Swelling, Temperature Above 101 F Operative Area Clean and Dry: Keep Incision Clean/Dry Stitches/[place]/Dermabond: Dermabond, Care of Stitches Bathing Instructions: AILEEN Covarrubias DO Sep 16, 2020 11:01
[2020-09-16] MEDS ORDERED: DCS100C PO (11:03)
[2020-09-16] MEDS ORDERED: IBUP-844 PO (11:03)
[2020-09-16] MEDS ORDERED: ACHD5005 PO (11:03)
--- NOTE | 2020-09-16 12:18 | NUR ---
LORTAB 2 TABS P.O. FOR C/O ABD PAIN.
--- NOTE | 2020-09-16 12:21 | NUR ---
MMR GIVEN SUBQ IN RIGHT UPPER ARM. SITE CLEAR. CARING FOR INFANT IN ROOM. GOOD INTERACTION NOTED. NURSERY RN TO ROOM FREQUENTLY R/T BLOOD SUGAR PROBLEMS WITH .
--- NOTE | 2020-09-16 12:22 | NUR ---
TDAP GIVEN IM IN LEFT DELTOID. SITE CLEAR.
[2020-09-16 14:00] VITALS: BP 130/74
--- NOTE | 2020-09-16 14:00 | NUR ---
FINGER FEEDING . VSS. DENIES PAIN AT THIS TIME.
--- NOTE | 2020-09-16 16:00 | Anesthesia-Regional Post-Op ---
Regional Patient Condition Mental Status: Alert, Oriented x3 Circulation: Same as Pre-Op Headache: Absent Sensation: Full Recovery Motor Block: Absent Post Op Complications Complications None Follow Up Care/Instructions Patient Instructions None needed. Anesthesia/Patient Condition Patient is doing well, no complaints, "numbness down right leg" has improved and is no longer a complaint according to RN. stable vital signs, no apparent adverse anesthesia problems. No complications reported per nursing. D/C home per [facility] [place] Criteria: BRIAN Mercedes CRNA Sep 16, 2020 16:00
--- NOTE | 2020-09-16 16:00 | NUR ---
INFANT TO REMAIN A PT. PT'S GRANDMOTHER PICKING UP PRESCRIPTIONS FOR PT.
[2020-09-16 17:40] VITALS: BP 130/74
--- NOTE | 2020-09-16 17:40 | NUR ---
DISCHARGE INSTRUCTIONS REVIEWED WITH COPY TO PT. STATES UNDERSTANDING OF ALL INSTRUCTIONS AND NEED TO F/U SCHEDULED AND NEEDED. GRANDMOTHER DROPPED OFF PT'S RXS. MOM WILL GO TO ROOMING IN PARENT R/T INFANT HAVING TO REMAIN A PT. SPOUSE AT BEDSIDE. SET UP SHOWER. GETTING READY TO EAT DINNER.
== END 2020-09-16 17:40 | disposition home or self-care (01) | DRG 787 ==
LOC: LDRP 19:07
PROVIDERS: ADMIT Family Medicine; ATTEND Family Medicine
PROC: 3E0P7VZ Introduction of Hormone into Female Reproductive, Via Natural or Artificial Opening (ICD-10-PCS; 2020-09-13)
PROC: 10D00Z1 Extraction of Products of Conception, Low, Open Approach (ICD-10-PCS; principal; 2020-09-14 18:00)
DX: O99.824 Streptococcus B carrier state complicating childbirth (principal); D62 Acute posthemorrhagic anemia; O77.0 Labor and delivery complicated by meconium in amniotic fluid; O76 Abnormality in fetal heart rate and rhythm complicating labor and delivery; O62.4 Hypertonic, incoordinate, and prolonged uterine contractions; O90.81 Anemia of the puerperium; Z37.0 Single live birth; Z3A.39 39 weeks gestation of pregnancy; Z20.828 Contact with and (suspected) exposure to other viral communicable diseases
CPT/HCPCS: 36415; 85007; 85025; 85027; 86850; 86900; 86901; 87635; 90707; 90715

== ENCOUNTER → 2021-06-14 | Outpatient (CLI) | payer OTHER, MEDICAID ==
[~2021-06-14] MED LIST changes: +ACHD5005 PO; +DCS100C PO; +IBUP-844 PO
--- NOTE | 2021-06-14 12:48 | Diagnostic Imaging Report ---
PROCEDURE: US OB SINGLE FETUS <14 WKS. TECHNIQUE: Multiple real-time grayscale images were obtained over the gravid uterus in various projections. INDICATION: dating. There is an intrauterine gestational sac containing a pole. Measurements are consistent with approximately 9 weeks 2 days gestation. heart rate was recorded at 169 bpm. No ayan-gestational sac hemorrhage is detected. Right ovary is unremarkable. Left ovary was not well visualized. No adnexal mass or free fluid is seen. IMPRESSION: Single live IUP 9 weeks 2 days gestational age. Estimated date of confinement sonographically is 01/15/2022. Dictated by: Dictated on workstation # [id number]
== END ==
LOC: RAD 10:00
PROVIDERS: ATTEND Family Medicine
DX: Z34.91 Encounter for supervision of normal pregnancy, unspecified, first trimester (principal); Z3A.09 9 weeks gestation of pregnancy
CPT/HCPCS: 76801

== ENCOUNTER → 2021-08-27 | Outpatient (CLI) | payer MEDICAID, OTHER ==
[~2021-08-27] MED LIST changes: -DCS100C PO; +DOCU-239 PO
--- NOTE | 2021-08-27 14:51 | Diagnostic Imaging Report ---
INDICATION: survey. TECHNIQUE: Multiple real-time grayscale images were obtained over the gravid uterus. COMPARISON: None FINDINGS: There is a single live fetus in a variable presentation. heart rate was recorded at 143 bpm. Placenta is anterior. Amniotic fluid index is 13.6 cm. Cervical length is 5.0 cm. kidneys, bladder and stomach are unremarkable. brain is unremarkable. There is a four-chamber heart. There is a 3 vessel cord with normal insertion. spine is grossly unremarkable. Biometrical measurements are as follows: Biparietal 4.53 cm, age 19 weeks 5 days. Head circumference 16.95 cm, age 19 weeks 5 days. Abdominal circumference 15.91 cm, age 21 weeks 1 days. Femur length 3.34 cm, age 20 weeks 4 days. Sonographic estimate age: 20 weeks 2 days. Sonographic estimated date of delivery: 01/12/2022. Estimated Weight: 365 gm (+/- 54 gm). LMP percentile: 86%. heart rate: 143 beats per minute. number: 1 of 1. IMPRESSION: Single live IUP of 20 weeks 2 days gestational age. Estimated date of confinement sonographically is 01/12/2022. Dictated by: Dictated on workstation # [id number]
== END ==
LOC: RAD 12:00
PROVIDERS: ATTEND Family Medicine
DX: Z34.92 Encounter for supervision of normal pregnancy, unspecified, second trimester (principal); Z3A.20 20 weeks gestation of pregnancy
CPT/HCPCS: 76805

== ENCOUNTER 2022-01-02 05:29 | Outpatient (CLI) | payer MEDICAID ==
[~2022-01-02] VITALS: Ht 161.6 cm; Wt 141.4 kg
[~2022-01-02 05:29] MED LIST changes: +CYCL10TA25 PO; -CYCL10TA9 PO
[2022-01-02] MEDS ORDERED: ACET-2267 PO (12:15)
== END 2022-01-02 12:52 ==
LOC: PREOP 05:29
PROVIDERS: ATTEND Obstetrics & Gynecology
DX: Z01.818 Encounter for other preprocedural examination (principal)

== ENCOUNTER 2022-01-09 05:16 | Inpatient (IN) | payer MEDICAID ==
[~2022-01-09] VITALS: Ht 162.6 cm; Wt 143.4 kg
[2022-01-09] VITALS (10 sets, daily range): BP systolic 109–130; BP diastolic 40–85
[~2022-01-09 05:16] MED LIST changes: +ACET-2267 PO
[2022-01-09] MEDS ORDERED: ceFAZolin 2 GM IV Premixed 50 ML IV ONE (05:45)
[2022-01-09 05:56] LABS: BASOPHILS # (AUTO) 0.1 10^3/uL (0.0-0.1); BASOPHILS % (AUTO) 1 % (0-10); EOSINOPHILS # (AUTO) 0.2 10^3/uL (0.0-0.3); EOSINOPHILS % (AUTO) 2 % (0-10); HEMATOCRIT 39 % (35-52); HEMOGLOBIN 12.3 g/dL (11.5-16.0); LYMPHOCYTES # (AUTO) 3.1 10^3/uL (1.0-4.0); LYMPHOCYTES % (AUTO) 24 % (12-44); MEAN CORPUSCULAR HEMOGLOBIN 24 pg (25-34); MEAN CORPUSCULAR HGB CONC 32 g/dL (32-36); MEAN CORPUSCULAR VOLUME 76 fL (80-99); MEAN PLATELET VOLUME 9.9 fL (9.0-12.2); MONOCYTES # (AUTO) 1.2 10^3/uL (0.0-1.0); MONOCYTES % (AUTO) 9 % (0-12); NEUTROPHILS # (AUTO) 8.4 10^3/uL (1.8-7.8); NEUTROPHILS % (AUTO) 65 % (42-75); PLATELET COUNT 399 10^3/uL (130-400)
[2022-01-09] MEDS ORDERED: CITRIC ACID/SOB CIT (BICITRA) 30 ML UDC PO ONE (06:00)
[2022-01-09] MEDS ORDERED: FAMOTIDINE 20MG/2ML IV (PEPCID) IV ONE (06:00)
[2022-01-09] MEDS ORDERED: METOCLOPRAMIDE INJ 10 MG/2 ML (REGLAN) IV ONE (06:00)
[2022-01-09] MEDS ORDERED: LACTATED RINGERS 1,000 ML IV PRN ×2 (06:00)
--- NOTE | 2022-01-09 07:10 | History & Physical-OB ---
OB - Chief Complaint & HPI Date/Time Date of Admission: Date of Admission: Jan 09, 2022 at 05:16 Date seen by a Provider: Jan 09, 2022 Time Seen by a Provider: 07:05 Chief Complaint/History OB-Reason for Admission/Chief: Section Hx : 2 Hx Para: 1 Expected Date of Delivery: Jan 15, 2022 Gestational Age in Weeks: 39 Gestational Age in Days: 1 Indication for : desires repeat Admission Nurse Assessment Rev: Yes Allergies and Home Medications Allergies Coded Allergies: No Known Drug Allergies (Unverified , 03/05/18) Patient Home Medication List Home Medication List Reviewed: Yes Acetaminophen (Tylenol Extra Strength) 500 Mg Tablet, 1 MG PO UD, (Reported) Entered as Reported by: SILVINO HOWE on 01/02/22 1215 Last Action: Reviewed Vit/Iron Fumarate/FA ( Tablet) 1 Each Tablet, 1 EACH PO DAILY, (Reported) Entered as Reported by: STEVO RIOS on 08/23/201654 Last Action: Reviewed Discontinued Medications Docusate Sodium (Dok) 100 Mg Capsule, 100 MG PO BID PRN for CONSTIPATION-1ST LINE Discontinued Reason: No Longer Taking Prescribed by: AILEEN NOBLE on 09/16/20 1103 Ferrous Sulfate (Iron) 325 Mg Tablet, 325 MG PO DAILY, (Reported) Discontinued Reason: No Longer Taking Entered as Reported by: STEVO RIOS on 08/23/201654 Hydrocodone/Acetaminophen (Hydrocodone-Acetamin 5-325 mg) 1 Each Tablet, 1-2 TAB PO Q4H PRN for PAIN-MODERATE (5-7) Discontinued Reason: No Longer Taking Prescribed by: AILEEN NOBLE on 09/16/20 1103 Ibuprofen (Ibu) 600 Mg Tablet, 600 MG PO Q6H Discontinued Reason: No Longer Taking Prescribed by: AILEEN NOBLE on 09/16/20 1103 Loratadine (Loratadine) 10 Mg Tablet, 10 MG PO DAILY, (Reported) Discontinued Reason: No Longer Taking Entered as Reported by: STEVO RIOS on 08/23/201654 OB - History Hx of Present Care: Yes Ultrasounds: Normal mid trimester US Obstetrical Complications: None Medical Complications: None Delivery History Hx Blood Disorders: No Adverse Rxn to Tranfusion: No Patient Past Medical History no chronic medical problems Social History/Family History 2nd Hand Smoke Exposure: No Immunizations Influenza Vaccine Up-to-Date: Yes; Up-to-Date Hepatitis A: Yes Hepatitis B: Yes OB - Admission Exam Physical Exam Vitals: Vital Signs 01/09/22 05:33 Temp 36.6 Pulse 87 Resp 20 B/P (MAP) 126/76 (93) Pulse Ox 98 O2 Delivery Room Air HEENT: NCAT Heart: Rhythm Normal Lungs: Clear Abdomen: Gravid Extremities: Normal Reflexes: Normal Heart Rate: 130's Accelerations: Accelerations Present Decelerations: No Decelerations Short Term Variability: Present Mcfp Variability: Average (6-25) Contractions on Admission: 6-10 Minutes Apart Intensity: Mild Labs Laboratory Tests Test 01/09/22 05:40 Range/Units White Blood Count 13.0 H 4.3-11.0 10^3/uL Red Blood Count 5.16 H 3.80-5.11 10^6/uL Hemoglobin 12.3 11.5-16.0 g/dL Hematocrit 39 35-52 % Mean Corpuscular Volume 76 L 80-99 fL Mean Corpuscular Hemoglobin 24 L 25-34 pg Mean Corpuscular Hemoglobin Concent 32 32-36 g/dL Red Cell Distribution Width 18.3 H 10.0-14.5 % Platelet Count 399 130-400 10^3/uL Mean Platelet Volume 9.9 9.0-12.2 fL Immature Granulocyte % (Auto) 0 % Neutrophils (%) (Auto) 65 42-75 % Lymphocytes (%) (Auto) 24 12-44 % Monocytes (%) (Auto) 9 0-12 % Eosinophils (%) (Auto) 2 0-10 % Basophils (%) (Auto) 1 0-10 % Neutrophils # (Auto) 8.4 H 1.8-7.8 10^3/uL Lymphocytes # (Auto) 3.1 1.0-4.0 10^3/uL Monocytes # (Auto) 1.2 H 0.0-1.0 10^3/uL Eosinophils # (Auto) 0.2 0.0-0.3 10^3/uL Basophils # (Auto) 0.1 0.0-0.1 10^3/uL Immature Granulocyte # (Auto) 0.1 0.0-0.1 10^3/uL OB - Assessment/Plan/Diagnosis Assessment Assessment: section Admission Dx 26 yo @ 39 weeks Previous Admission Status: Inpatient Order (span 2 midnights) Reason for Inpatient Admission: Repeat at 39 weeks Plan Plan: Section AILEEN NOBLE DO Jan 09, 2022 07:10
--- NOTE | 2022-01-09 07:13 | Discharge Inst-Women's Service ---
Discharge Inst-Women's Serv Depart Medication/Instructions New, Converted or Re-Newed RX: Transmitted to Pharmacy Final Diagnosis POD 2 RLTCS Problems Reviewed?: Yes Consults/Follow Up Additional Follow Up: Yes Orders/Referrals Dr. Harding/Lizeth in 7-[address] Mandujano in 6 weeks Activity Activity: Activity as Tolerated Driving Instructions: No Driving for 1 Week NO SMOKING: NO SMOKING Nothing Inside Vagina: No Douching, No [place], No Tampons Diet Discharge Diet: No Restrictions Symptoms to Report to : Bleeding Excessive, Pain Increased, Fever Over 101 Degrees F, Vaginal Bleeding Increase, Questions/Concerns For Any Problems or Questions: Contact Your Physician Skin/Wound Care Infection Signs and Symptoms: Increased Redness, Foul Odor of Wound, Increased Drainage, Skin Itchy or Has a Rash, Increased Swelling, Temperature Above 101 F Operative Area Clean and Dry: Keep Incision Clean/Dry Stitches/[place]/Dermabond: Dermabond, Care of Stitches Bathing Instructions: AILEEN Covarrubias DO Jan 09, 2022 07:13
[2022-01-09] MEDS ORDERED: DOCU100C37 PO (07:14)
[2022-01-09] MEDS ORDERED: ACHD5005 PO (07:14)
[2022-01-09] MEDS ORDERED: IBUP-844 PO (07:14)
[2022-01-09] MEDS ORDERED: MEASLES,MUMPS,RUBELLA 1 EA INJ SC SCH (07:15)
[2022-01-09] MEDS ORDERED: OXYTOCIN PRE-MIX DRIP 500 ML IV SCH (07:15)
[2022-01-09] MEDS ORDERED: NALOXONE 0.4 MG/ML 1 ML (NARCAN) VIAL IV PRN (07:15)
[2022-01-09] MEDS ORDERED: TETANUS,DIPTH,PERTUSS P/F (BOOSTRIX) 0.5 ML VIAL IM SCH (07:15)
[2022-01-09] MEDS ORDERED: ONDANSETRON 4 MG/2 ML (SDV) Z0FRAN IVP PRN ×2 (07:15→09:00)
[2022-01-09] MEDS ORDERED: LIDOCAINE PF 2% 5 ML (XYLOCAINE) VIAL ONE (07:45)
[2022-01-09] MEDS: KETOROLAC 30 MG/ML VIAL IV SCH ×3 (08:30→20:28)
[2022-01-09] MEDS ORDERED: KETOROLAC 30 MG/ML VIAL ONE (08:36)
[2022-01-09] MEDS ORDERED: ONDANSETRON 4 MG/2 ML (SDV) Z0FRAN ONE (08:36)
[2022-01-09] MEDS ORDERED: HYDROmorphone 2 MG/ML VIAL (DILAUDID) IV ONE (09:00)
--- NOTE | 2022-01-09 10:40 | OPERATIVE REPORT ---
DATE OF SERVICE: 01/09/2022 PREOPERATIVE DIAGNOSES: 1. A 26-year-old G2, P1 at 39 weeks gestation. 2. Previous section. POSTOPERATIVE DIAGNOSES: 1. A 26-year-old G2, P1 at 39 weeks gestation. 2. Previous section. PROCEDURE: Repeat low transverse section. SURGEON: Tra Noble DO DATAWAREHOUSE DEVELOPER: Dr. Sergio Mandujano, who was necessary for manipulation and retraction throughout the procedure. ANESTHESIA: Spinal. ESTIMATED BLOOD LOSS: 500 mL. URINE OUTPUT: 50 mL clear at the end of the procedure. FLUIDS: 1000 mL lactated Ringer's solution. FINDINGS: A live female infant weighing 8 pounds 3 ounces, Apgars 9 and 9. Grossly normal appearing uterus, bilateral fallopian tubes and ovaries. SPECIMEN SENT: None. INDICATIONS FOR PROCEDURE: This is a 26-year-old female is a patient who had sought care with Dr. Mandujano. It was uncomplicated with the exception of her medical comorbidity of morbid obesity. She was sent to my office for consultation for repeat . I reviewed with her the risk of this versus proceeding with a vaginal after and the patient wished to proceed with . After all of her questions were answered in the preoperative area, consent was obtained, the patient was taken to the operating room. OPERATIVE REPORT IN DETAIL: Once in the operating room, spinal analgesia was found to be adequate, placed in supine position with leftward tilt, prepped and draped in normal sterile fashion. Timeout was performed and anesthesia was tested. I then make a Pfannenstiel skin incision through the previously existing scar using knife and carried down to underlying fascia using Bovie cautery. The fascial incision extended laterally using Bovie cautery and superior aspect of fascial incision was then grasped with Ninfa clamps, tented up and dissected off the underlying rectus muscles. The inferior aspect of the fascial incision was then grasped with Ninfa clamps, tented up and dissected off the underlying rectus muscles. The rectus muscle was then dissected down the midline, which exposed the peritoneum, which I entered bluntly and extended using blunt traction. Carlos ring retractor was placed in the peritoneal incision, which offers excellent lateral sidewall retraction. I identified the lower uterine segment, which was found to be thinned out and make a low transverse incision through the vesicouterine peritoneum and bluntly dissected off the lower uterine segment, creating a bladder flap. I then proceeded with my myotomy until membranes were encountered and clear fluid was noted at the time of rupture. The uterine incision extended laterally and superiorly using bandage scissors. The was found in vertex presentation. With gentle fundal pressure, the infant's head was elevated up the incision where the nares and oropharynx were bulb suctioned. Anterior and posterior shoulders were delivered. The infant was then brought to the operative field where the cord was doubly clamped and cut and infant was taken off the field by Dr. Mandujano. Cord blood was collected, 3-vessel cord with intact placenta was delivered spontaneously thereafter. IV Pitocin was initiated to facilitate uterine contraction. Uterine fundus confirmed by manual massage. The uterus was then exteriorized and cleared of all endometrial clots and debris. I then proceeded with closing the uterine incision using 0 Vicryl suture in running locked fashion. Second layer of imbricating 0 Monocryl was placed. Excellent hemostasis was noted after doing this. I then placed the uterus back in the pelvis and copiously irrigated the pelvis using normal saline. Once again, there was no active bleeding noted from any of my dissection planes. I placed Interceed antiadhesive over my low transverse incision. I removed the Carlos ring retractor and then proceeded with closing the peritoneum using 2-0 Vicryl suture in a running fashion. The rectus muscles were reapproximated using 3-0 Vicryl suture in interrupted fashion. The fascia was reapproximated using 0 Vicryl suture in running fashion. Subcutaneous tissue was reapproximated using 3-0 plain in an interrupted subcutaneous stitch and skin reapproximated using 4-0 Monocryl running subcuticular. Dermabond was applied to incision and sterile dressing with adhesive white tape. The patient tolerated the procedure well and sent to recovery area in stable condition. Lap and sponge counts were correct at the end of procedure. Instrument counts correct as well. Two grams of Ancef given preoperatively for infection prophylaxis. Job ID: [id number] DocumentID: [id number] Dictated Date: 01/09/2022 08:23:52 Butt Welder Date: 01/09/2022 10:38:59 Dictated By: TRA NOBLE DO
[2022-01-09] MEDS ORDERED: diphenhydrAMINE 50 MG/ML INJ (BENADRYL) IVP PRN (10:45)
[2022-01-09] MEDS: HYDROcodone/APAP 5 MG/325 MG (LORTAB) TAB PO PRN ×4 (10:48→22:48)
[2022-01-09] MEDS: DOCUSATE SODIUM 100 MG (COLACE) CAP PO SCH ×2 (10:48→20:28)
[2022-01-09] MEDS: CATHETER FLUSH 10 ML SYR IV SCH ×2 (14:56→20:28)
[2022-01-10] MEDS: CATHETER FLUSH 10 ML SYR IV SCH (01:33)
[2022-01-10] MEDS: KETOROLAC 30 MG/ML VIAL IV SCH (01:33)
[2022-01-10 04:25] VITALS: BP 114/67
[2022-01-10 05:39] LABS: BASOPHILS # (AUTO) 0.1 10^3/uL (0.0-0.1); BASOPHILS % (AUTO) 1 % (0-10); EOSINOPHILS # (AUTO) 0.2 10^3/uL (0.0-0.3); EOSINOPHILS % (AUTO) 2 % (0-10); HEMATOCRIT 33 % (35-52); HEMOGLOBIN 10.5 g/dL (11.5-16.0); LYMPHOCYTES # (AUTO) 2.3 10^3/uL (1.0-4.0); LYMPHOCYTES % (AUTO) 18 % (12-44); MEAN CORPUSCULAR HEMOGLOBIN 24 pg (25-34); MEAN CORPUSCULAR HGB CONC 32 g/dL (32-36); MEAN CORPUSCULAR VOLUME 76 fL (80-99); MEAN PLATELET VOLUME 9.8 fL (9.0-12.2); MONOCYTES # (AUTO) 1.1 10^3/uL (0.0-1.0); MONOCYTES % (AUTO) 9 % (0-12); NEUTROPHILS # (AUTO) 9.3 10^3/uL (1.8-7.8); NEUTROPHILS % (AUTO) 71 % (42-75); PLATELET COUNT 308 10^3/uL (130-400); WHITE BLOOD COUNT 13.1 10^3/uL (4.3-11.0)
[2022-01-10] MEDS: HYDROcodone/APAP 5 MG/325 MG (LORTAB) TAB PO PRN ×3 (05:46→19:47)
--- NOTE | 2022-01-10 07:38 | Anesthesia-Regional Post-Op ---
Regional Patient Condition Mental Status: Alert, Oriented x3 Circulation: Same as Pre-Op Headache: Absent Sensation: Full Recovery Motor Block: Absent Post Op Complications Complications None Follow Up Care/Instructions Patient Instructions None needed. Anesthesia/Patient Condition Patient is doing well, no complaints, stable vital signs, no apparent adverse anesthesia problems. No complications reported per nursing. BRIAN SILVA CRNA Jan 10, 2022 07:38
[2022-01-10] MEDS ORDERED: IBUPROFEN 600 MG (MOTRIN) TAB PO ONE (07:43)
[2022-01-10 07:45] VITALS: BP 130/73
[2022-01-10] MEDS: IBUPROFEN 600 MG (MOTRIN) TAB PO SCH ×3 (07:46→21:09)
[2022-01-10] MEDS: DOCUSATE SODIUM 100 MG (COLACE) CAP PO SCH ×2 (07:46→21:07)
--- NOTE | 2022-01-10 08:27 | Postpartum Progress Note ---
Note Note Day # 1 Subjective: Patient is without complaints. Ambulating, voiding. Tolerating a regular diet without nausea or vomiting. Normal lochia. Pain is well controlled with oral pain medications. Objective: Physical Exam: General - Alert and oriented, no apparent distress Abdomen - Soft, appropriately tender to palpation, non-distended, fundus firm at umbilicus Extremities - no edema, negative Vincent's bilaterally Incision- c/d/i Assessment: POD 1 RLTCS Acute blood loss anemia Plan: Routine care. Encourage breast feeding. Encourage ambulation. Ferrous sulfate supplementation. Plan for discharge tomorrow Vitals - Labs Vital Signs - I&O Vital Signs Date Time Temp Pulse Resp B/P (MAP) Pulse Ox O2 Delivery O2 Flow Rate FiO2 01/10/22 04:25 36.3 99 18 114/67 (83) 98 Room Air 01/09/22 23:45 37.0 96 18 129/60 (83) 97 Room Air 01/09/22 20:28 37.3 62 18 124/68 (86) 98 Room Air 01/09/22 17:15 36.8 109 18 130/85 (100) 99 Room Air 01/09/22 12:00 36.4 84 18 123/68 (86) 97 Room Air 01/09/22 09:40 36.3 16 109/50 (69) 99 Room Air 01/09/22 09:22 36.2 16 115/73 (87) 98 Room Air 01/09/22 09:04 35.9 16 117/56 (76) 100 Room Air 01/09/22 08:58 36.0 16 109/40 (63) 99 Room Air 01/09/22 08:48 36.0 64 16 109/40 (63) 99 Room Air I & O 01/10/22 06:59 Intake Total 1350 ml Output Total 1750 ml Balance -400 ml Labs Laboratory Tests 01/10/22 05:23: White Blood Count 13.1H, Red Blood Count 4.36, Hemoglobin 10.5L, Hematocrit 33L, Mean Corpuscular Volume 76L, Mean Corpuscular Hemoglobin 24L, Mean Corpuscular Hemoglobin Concent 32, Red Cell Distribution Width 18.2H, Platelet Count 308, Mean Platelet Volume 9.8, Immature Granulocyte % (Auto) 1, Neutrophils (%) (Auto) 71, Lymphocytes (%) (Auto) 18, Monocytes (%) (Auto) 9, Eosinophils (%) (Auto) 2, Basophils (%) (Auto) 1, Neutrophils # (Auto) 9.3H, Lymphocytes # (Auto) 2.3, Monocytes # (Auto) 1.1H, Eosinophils # (Auto) 0.2, Basophils # (Auto) 0.1, Immature Granulocyte # (Auto) 0.1 AILEEN NOBLE DO Jan 10, 2022 08:26
[2022-01-10 12:11] VITALS: BP 132/59
[2022-01-10 15:24] VITALS: BP 133/70
[2022-01-10 19:33] VITALS: BP 150/85
[2022-01-10 23:53] VITALS: BP 129/74
[2022-01-11] MEDS: HYDROcodone/APAP 5 MG/325 MG (LORTAB) TAB PO PRN ×3 (00:36→12:15)
[2022-01-11 03:02] VITALS: BP 126/75
[2022-01-11] MEDS: IBUPROFEN 600 MG (MOTRIN) TAB PO SCH ×2 (03:24→09:07)
[2022-01-11 07:11] VITALS: BP 134/77
[2022-01-11] MEDS: DOCUSATE SODIUM 100 MG (COLACE) CAP PO SCH (09:06)
--- NOTE | 2022-01-11 09:29 | Postpartum Progress Note ---
Note Note Day # 2 Subjective: Patient is without complaints. Ambulating, voiding. Tolerating a regular diet without nausea or vomiting. Normal lochia. Pain is well controlled with oral pain medications. Physical Exam: General - Alert and oriented, no apparent distress Abdomen - Soft, appropriately tender to palpation, non-distended, fundus firm at umbilicus; incision c/d/i Extremities - no edema, negative Vincent's bilaterally Assessment: Post- day # 2, status post RLTCS. Recovering well, hemodynamically stable Acute blood loss anemia Plan: Routine care. Encourage breast feeding. Encourage ambulation. Ferrous sulfate supplementation. Plan for discharge today Vitals - Labs Vital Signs - I&O Vital Signs Date Time Temp Pulse Resp B/P (MAP) Pulse Ox O2 Delivery O2 Flow Rate FiO2 01/11/22 07:11 36.4 92 18 134/77 (96) Room Air 01/11/22 03:02 36.5 103 18 126/75 (92) 100 Room Air 01/10/22 23:53 36.0 88 18 129/74 (92) 100 Room Air 01/10/22 19:33 36.3 87 18 150/85 (106) 100 Room Air 01/10/22 15:24 37.0 80 20 133/70 (91) 98 Room Air 01/10/22 12:11 36.7 88 17 132/59 (83) 98 Room Air I & O 01/11/22 07:00 Intake Total 1200 ml Balance 1200 ml Labs Microbiology 01/09/22 MRSA Screen - Final, Complete MRSA not isolated PEDRO FAYE APRN Jan 11, 2022 09:29
[2022-01-12] MEDS ORDERED: CYCL10TA25 PO (13:25)
[2022-01-12] MEDS ORDERED: ONDA4TAB11 SL (13:25)
== END 2022-01-11 12:45 | disposition home or self-care (01) | DRG 787 ==
LOC: LDRP 05:16
PROVIDERS: ADMIT Obstetrics & Gynecology; ATTEND Obstetrics & Gynecology
PROC: 10D00Z1 Extraction of Products of Conception, Low, Open Approach (ICD-10-PCS; principal; 2022-01-09 07:10)
DX: O34.211 Maternal care for low transverse scar from previous cesarean delivery (principal); D62 Acute posthemorrhagic anemia; Z3A.39 39 weeks gestation of pregnancy; Z37.0 Single live birth; O90.81 Anemia of the puerperium
CPT/HCPCS: 36415; 85025; 86850; 86900; 86901; 87081; 94664

== ENCOUNTER 2023-07-08 07:08 | Day surgery (SDC) | payer MEDICAID, OTHER ==
[~2023-07-08] VITALS: Ht 162.6 cm; Wt 128.4 kg
[~2023-07-08 07:08] MED LIST changes: +DOCU100C37 PO; +ONDA4TAB11 SL
[2023-07-08] MEDS ORDERED: LACTATED RINGERS 1,000 ML 1,000 ML IV STA (07:16)
[2023-07-08 07:48] VITALS: BP 135/73
--- NOTE | 2023-07-08 08:50 | Progress Note-Pre Operative ---
Pre-Operative Progress Note Date H&P Reviewed: Jul 08, 2023 Time H&P Reviewed: 08:49 History & Physical: H&P Reviewed, Patient Examed, No changes noted Pre-Operative Diagnosis: abdominal pain hematochezia HODA DIZA DO Jul 08, 2023 08:50
--- NOTE | 2023-07-08 09:27 | Progress Note-Post Operative ---
Post-Operative Progess Note Surgeon (s)/Batch Blender (s) Surgeon HODA DIAZ DO Batch Blender: NA Pre-Operative Diagnosis abdominal pain hematochezia Post-Operative Diagnosis Posterior anal fissue, small ulceration descending colon Procedure & Operative Findings Date of Procedure 07/08/23 Procedure Performed/Findings Colonoscopy with cold biopsy Anesthesia Type per PREMIX CONCRETE BATCHER Estimated Blood Loss Estimated blood loss (mL): none Specimens/Packing Specimens Removed Descending colon ulcer HODA DIAZ DO Jul 08, 2023 09:27
[2023-07-08] MEDS ORDERED: DOCU-143 PO (09:29)
--- NOTE | 2023-07-08 09:29 | Anesthesia-General Post-Op ---
MAC Patient Condition Mental Status/LOC: Same as Preop Cardiovascular: Satisfactory Nausea/Vomiting: Absent Respiratory: Satisfactory Pain: Controlled Complications: Absent Post Op Complications Complications None Follow Up Care/Instructions Patient Instructions None needed. Anesthesiology Discharge Order Discharge Order Patient is doing well, no complaints, stable vital signs, no apparent adverse anesthesia problems. No complications reported per nursing. HEATH CARTER CRNA Jul 08, 2023 09:28
[2023-07-08 09:30] VITALS: BP 121/66
--- NOTE | 2023-07-08 09:30 | Discharge Inst-Simple/Standard ---
Discharge Inst-Standard Discharge Medications New, Converted or Re-Newed RX: Transmitted to Pharmacy Patient Instructions/Follow Up Plan of Care/Instructions/FU: Two weeks Mahesh Activity as Tolerated: Yes Discharge Diet: Regular Diet (High fiber) HODA DIAZ DO Jul 08, 2023 09:30
[2023-07-08 09:35] VITALS: BP 114/72
[2023-07-08 10:05] VITALS: BP 114/72
--- NOTE | 2023-07-08 17:04 | OPERATIVE REPORT ---
DATE OF SERVICE: 07/08/2023 PREOPERATIVE DIAGNOSES: Abdominal pain and hematochezia. POSTOPERATIVE DIAGNOSES: Posterior anal fissure healing, a small ulceration descending colon. PROCEDURE: Colonoscopy with cold biopsy. SURGEON: Hoda Aragon DO ANESTHESIA: Per HEAD OF LOSS PREVENTION. ESTIMATED BLOOD LOSS: None. COMPLICATIONS: None. INDICATIONS: The patient is a 28-year-old female with abdominal pain and some hematochezia. She understands risks and benefits of procedure and wished to proceed. Consent was signed in chart. DESCRIPTION OF PROCEDURE: The patient was taken to the endoscopy suite, placed in left lateral recumbent position. Timeout was performed. Digital rectal exam was performed noting a posterior anal fissure that is almost healed. No palpable polyps, masses or ulcerations. Scope was inserted in the rectum and advanced all the way to the cecum with minimal difficulty. Prep was adequate. Scope was slowly retracted back. No polyps, masses or ulcerations in the cecum, ascending and transverse colon. In the descending colon, a small area of inflammation with small ulcer was present. Cold biopsy of this area was obtained. Scope was then continuously retracted back. No polyps, masses or ulcerations in the remainder of the descending sigmoid colon. Once in the rectum, scope was retroflexed noting no other pathology. Scope was returned to its normal position, slowly withdrawn until completely removed. The patient tolerated the procedure well without complications, taken to recovery room in stable condition. RECOMMENDATIONS: The patient will await biopsy results. We go over pathology in 2 weeks. Any issues before that, be seen at that time. Would try to keep the stool soft with a stool softener if hard. We will need repeat colonoscopy per screening guidelines unless any changes before that and we would reconsider earlier. Job ID: [id number] DocumentID: [id number] Dictated Date: 07/08/2023 09:28:12 Composite Layup Worker Date: 07/08/2023 17:02:00 Dictated By: HODA ARAGON DO
== END 2023-07-08 10:05 | disposition home or self-care (01) ==
LOC: ENDO 07:08
PROVIDERS: ATTEND Surgery
DX: K60.3 Anal fistula (principal); K52.9 Noninfective gastroenteritis and colitis, unspecified; E66.01 Morbid (severe) obesity due to excess calories; Z68.42 Body mass index [BMI] 45.0-49.9, adult
CPT/HCPCS: 84703